=== PATIENT | male | born 1990 | race Caucasian/White ===

== ENCOUNTER 2016-11-12 20:07 | Emergency (ER) | payer BC ==
[~2016-11-12] VITALS: Ht 175.3 cm; Wt 86.2 kg
[2016-11-12 20:25] VITALS: BP 122/74; PULSE 86; RESP 16; TEMP 98.5; O2SAT 97
--- NOTE | 2016-11-12 22:59 | NUR ---
Patient to ER bed 4 for evaluation. Side rails up. Report given to BRIDGETTE Yang.
--- NOTE | 2016-11-12 23:15 | NUR ---
Pt was wrestling earlier were he injured his L pinky. Wants to R/O fx. Will continue to monitor. No other injuries or complaints mentioned/noted. No distress noted.
--- NOTE | 2016-11-12 23:15 | NUR ---
Note zoraidagenoveva in ED - 11/12/16 at 2350 by AFSHIN Pt was wrestling earlier were he injured his R pinky. Wants to R/O fx. Will continue to monitor. No other injuries or complaints mentioned/noted. No distress noted.
--- NOTE | 2016-11-12 23:30 | NUR ---
ER Dr. Bartlett at bedside examining patient.
[2016-11-12 23:45] VITALS: BP 122/74; PULSE 80; RESP 16; TEMP 98.5; O2SAT 97
--- NOTE | 2016-11-12 23:45 | NUR ---
Patient given written and verbal discharge instructions and verbalizes understanding. ER MD discussed with patient the results and treatment provided. Given copies of tests performed in ER. Patient in stable condition. ID arm band removed. Rx of motrin given. Patient educated on pain management and to follow up with PMD. Pain Scale 2/10 Opportunity for questions provided and answered.
== END 2016-11-12 23:45 | disposition home or self-care (01) ==
LOC: SED 20:07
DX: S62.617A Displaced fracture of proximal phalanx of left little finger, initial encounter for closed fracture (principal); X58.XXXA Exposure to other specified factors, initial encounter; Y93.79 Activity, other specified sports and athletics; Y99.8 Other external cause status; Y92.89 Other specified places as the place of occurrence of the external cause
CPT/HCPCS: 73140-TC; 99284